=== PATIENT | male | born 1965 | race Caucasian/White ===

== ENCOUNTER 2017-11-25 03:44 | Emergency (ER) | payer SELFPAY ==
[~2017-11-25] VITALS: Ht 188 cm; Wt 104.3 kg
[2017-11-25 04:02] VITALS: BP_SYST 139
[2017-11-25] MEDS ORDERED: ONDANSETRON 4 MG ODT TAB PO ONE (04:30)
[2017-11-25] MEDS ORDERED: CYCLOBENZAPRINE HCL 10 MG TABLET (FLEXERIL) PO ONE (04:30)
[2017-11-25] MEDS ORDERED: KETOROLAC TROMETHAMINE 30 MG VIAL IM ONE (04:30)
[2017-11-25] MEDS ORDERED: NACL 0.9% 1,000 ML IV ONE (05:15)
[2017-11-25] MEDS ORDERED: HYDROcodone/ACETAMIN 5-325 MG TAB (NORCO/ VICODIN) PO ONE (05:45)
[2017-11-25 07:31] VITALS: BP_SYST 154
== END 2017-11-25 07:30 | disposition home or self-care (01) ==
LOC: SED 03:44
DX: M54.9 Dorsalgia, unspecified (principal)
CPT/HCPCS: 36415; 85379; 96372; 99284; J1885; J7040; Q0162